=== PATIENT | female | born 1950 | race Caucasian/White ===

== ENCOUNTER → 2021-09-29 | Outpatient (CLI) | payer MEDICARE ==
[~2021-09-29] MED LIST: CALC-178 PO; CALC500T30 PO; CARV6.25 PO; CYCL10TA19 PO; DULO30CA2 PO; ERYT250T14 PO; HYDR-3135 PO; PRAV20TA2 PO; RIVA20TA2 PO; TRAM50TA PO
--- NOTE | 2021-09-29 10:37 | RAD ---
Exam Date: 09/29/2021 10:13 AM XR LUMBAR SPINE 2-3V Indication: Reason: LOW BACK PAIN / Spl. Instructions: / History: . FINDINGS/ IMPRESSION: There is mild retrolisthesis of L1 on L2, L3 on L4, and L4 on L5. The vertebral body heights are maintained without evidence of compression fracture. Mild to moderate disc space narrowing seen at multiple levels with small to moderate osteophytes and mild to moderate facet joint arthropathy. Degenerative changes are seen in the SI joints. Vascular calcifications a re noted. Electronically signed by: Julio Gaspar MD (09/29/2021 10:34 AM) [id number]
--- NOTE | 2021-09-29 11:01 | RAD ---
Exam Date: 09/29/2021 10:09 AM XR CERVICAL SPINE 2-3V Indication: Reason: CERVICAL RADCULOPATHY / Spl. Instructions: / History: . FINDINGS/ IMPRESSION: The cervical spine is visualized from C1 to T1 on the lateral view. There is greater anterolisthesis of C4 and C5 with focal kyphosis. The vertebral body heights are maintained without evidence of acu te fracture. Mild to moderate disc space narrowing seen at multilevels with small osteophytes, most prominent at C5-C6 and C6-C7. The atlantoaxial interval is within normal limits. The prevertebral so ft tissues are normal. Electronically signed by: Julio Gaspar MD (09/29/2021 10:58 AM) [id number]
--- NOTE | 2021-09-29 13:32 | PDOC1 ---
INITIAL PAIN CONSULT DATE OF SERVICE: DOS: DATE: 09/29/21 TIME: :22 CHIEF COMPLAINT: Chief Complaint: Neck and left upper extremity pain Low back and left lower extremity pain HISTORY OF PRESENT ILLNESS: 71-year-old female presents with history of pain base of neck and left upper e xtremity and shoulder as well as low back pain mid back pain and radiating pain to the lower extremities left greater than right as well. Patient reports has been going on for 20 years least is worse over the past year or so not the result of any one specific injury or accident that she is aware but getting worse with time and wear and tear. Patient reports pain the base the neck and left upper extremity is her main complaint with pain rating the posterior deltoid anterior deltoid lateral deltoid to the biceps and triceps as well as into the forearm and into the hand with some numbness and tingling in the fingers at times. Patient reports is worse with repetitive motions lifting weightbearing reaching overhead with her arms some pain on the right side as well but mostly on the left. Patient reports it can be constant sharp stabbing throbbing and shooting in the arms intermittent intensity but always present with change during the day with activity has a burning sensation in the mid back as well as the upper back and aching in the low back with some pain in the left lower extremity as well. Patient reports that the pain wakes her from sleep about once or twice a night does not affect her bowel bladder control does affect her ability to walk, especially with the pain in the low back and legs, patient reports that she has had physical therapy as recently as October of this past year for 8 weeks, also chiropractic treatment which is ongoing and exercise which is ongoing always help with the pain but none of them decreases significantly. Patient been taking [id number] Tylenol which helps but only by about 25%. Patient reports her disability rating 0-10 10 being the worst is a 7-8 on scale 10 with family home responsibilities 9 with recreation 8 with social activity occupation and sexual behavior 9 with life support activities and 7 with self-care activities. Patient has had no diagnostic studies at this point and has been diagnosed with fibromyalgia and peripheral neuropathy in the past by her report. Patient reports no loss of motor function but significant fatigability of the left upper extremity with repetitive motions and weightbearing, as well as the low back and legs with standing and walking. PAST MEDICAL HISTORY: PMH: Hypertension, arthritis, hyperlipidemia, atrial fibrillation, fibromyalgia, depression, stroke PREVIOUS SURGERIES: Past Surgical Hx: Tonsillectomy, tubal ligation, left total knee replacement, cardiac ablation CURRENT MEDICATIONS: Current Meds: Active Scripts Medications Dose Route/Sig Max Daily Dose Days Date Category Dose Instructions Calcium 1,000 + D3 Caplet (Calcium Carbonate/Vitamin D3) 1 Each Tablet 1 Tab PO DAILY 30 09/29/21 Reported Xarelto (Rivaroxaban) 20 Mg Tablet 1 Tab PO DAILY 30 09/29/21 Reported with food Tramadol Hcl 50 Mg Tablet 50 Mg PO PRN Q8HRS PRN 09/29/21 Reported Bowden 10-325 Tablet (Acetaminophen/Hydrocodone Bitart) 1 Each Tablet 1-2 Tab PO Q4-6HRS 08/13/14 Reported Cymbalta (Duloxetine Hcl) 30 Mg Capsule.dr 2 Cap PO DAILY 08/13/14 Reported ALLERGIES; Allergies: Coded Allergies: No Known Drug Allergies (Unverified , 08/13/14) FAMILY HISTORY: Family Hx: No major medical problems or conditions that she is aware of. SOCIAL HISTORY: Social Hx: Patient does not memo alcohol does not smoke not use any illegal illicit recreational drugs is lives with her spouse and lives locally in [facility] reports she is currently retired but stays very active. REVIEW OF SYSTEMS: ROS: Positive for those items mentioned in history of present illness, all systems are reviewed, otherwise negative ,and are complete full and well-documented on patient's chart. PHYSICAL EXAM: VS: Blood pressure 159/69 pulse 70 respirations 18 temperature is 98.0 F height 5 feet 5 inches weight is 202 pounds PE: PHYSICAL EXAMINATION: GENERAL: The patient is awake, alert, oriented, appropriate, very pleasant in demeanor HEENT: Shows normocephalic, atraumatic. Extraocular movements are intact and symmetrical. Oral cavity: Mucous membranes moist and pink. NECK: Shows anterior throat supple without palpable lymphadenopathy noted. Swallow reflex symmetrical. CHEST: Shows normal on inspection. Breath sounds are clear bilaterally, no rales rhonchi or wheezes auscultated. HEART: Shows S1, S2 clear. No murmurs auscultated. ABDOMEN: Soft, nontender, nondistended. No palpable organomegaly is noted. No rebound or guarding demonstrated. BACK: Shows spine grossly in the midline. Normal-appearing cervical lordotic curvature. Cervical paraspinous muscles show symmetrical inspection, on palpation some moderate tenderness diffusely in the middle and lower distribution the paraspinous muscles somewhat more on the left than the right into the superior medial trapezius but without specific trigger points without atrophy hypertrophy. Patient shows good rotation motion cervical spine with some tenderness with far left lateral rotation also with extension but not with forward flexion or right lateral rotation. There is slightly increased thoracic kyphosis, some flattening of the lumbar lordotic curvature. Lumbar paraspinous muscles show symmetrical on inspection, on palpation shows some moderate tenderness diffusely throughout the upper, middle and lower distribution of the paraspinous muscles bilaterally and also into the lower thoracic paraspinous musculature, firm and tender, but without specific trigger points, without radiation of pain. The patient has good rotational motion of the lumbar spine, both laterally as well as extension and flexion without significant difficulty. No tenderness over the spinous processes, sacrum or sacroiliac regions. EXTREMITIES: Lower extremities show deep tendon reflexes one in the patellar and tendo calcaneus tendons. Motor exam is 5 on a scale of 5 with right dorsiflexion, extension, quadriceps and hamstring flexion and 4/5 on the left. Peripheral pulses are 1+ posterior tibial. No peripheral edema is noted bilaterally. Lower extremities are warm and dry to touch, equal in color and appearance. Upper extremity show deep tendon reflexes 2+ in the bicep and tricep tendons, motor exam is 4 to scale 5 with left geological technician strength bicep and triceps and 5 out of 5 on the right. Peripheral pulses are 2+ radial. Shoulder shrug is strong and intact without loss strength on resistance as is abduction of the shoulder 90 degrees without loss of strength on resistance bilaterally. SKIN: Shows warm and dry, good turgor. No edema. No sores, rashes or bruising throughout. IMPRESSION: Impression: 71-year-old female with long history of pain base of neck and shoulders and radicular pain following a C6-7 dermatomal distribution in the left upper extremity Low back and left greater than right lower extremity pain Arthritis Hypertension Previous strokes Atrial fibrillation status post ablation Fibromyalgia Depression Plan: Options were discussed the patient occluding conservative managements physical therapies interventional techniques. Patient would like to pursue eventual techniques as she is currently doing physical therapies and chiropractic treatment. We discussed a cervical epidural steroid injection using description as well as anatomical models to describe the procedure. We will check with patient's can bander operator to obtain clearance to hold her Xarelto for 48 hours prior to interventional treatment. If deemed safe and appropriate will have patient return after holding the medication for 48 hours and plan on cervical epidural steroid injection, C6-7 translaminar approach, at that time. CECE CONNOLLY MD Sep 29, 2021 13:32
== END | disposition home or self-care (01) ==
LOC: PNCL 09:00
PROVIDERS: ATTEND Anesthesiology
DX: M54.50 Low back pain, unspecified (principal); M54.2 Cervicalgia; M25.78 Osteophyte, vertebrae; M79.602 Pain in left arm; M79.605 Pain in left leg; I10 Essential (primary) hypertension; M19.90 Unspecified osteoarthritis, unspecified site; I48.91 Unspecified atrial fibrillation; F32.9 Major depressive disorder, single episode, unspecified; Z98.51 Tubal ligation status; Z98.890 Other specified postprocedural states; Z86.73 Personal history of transient ischemic attack (TIA), and cerebral infarction without residual deficits; Z79.899 Other long term (current) drug therapy
CPT/HCPCS: 72040; 72100; 99205; G0463

== ENCOUNTER → 2021-10-14 | Outpatient (CLI) | payer MEDICARE ==
[~2021-10-14] MED LIST changes: +DEXAMETHASONE PRES.FREE 10 MG/ML VIAL. ONE; +IOHEXOL 180 MG/ML 10 ML VIAL. ONE
--- NOTE | 2021-10-14 12:09 | PDOC ---
Progress Note - Pain Clinic Date of Service: DOS: DATE: 10/14/21 TIME: 12:03 Diagnosis: Dx: Cervical radiculopathy with cervical degenerative disc disease Lumbar radiculopathy with lumbar degenerative disc disease Bilateral sacroiliitis History or Present Illness: HPI: 71-year-old female returns for follow-up status post evaluation and holding her Xarelto for 48 hours patient's been off of this now returns for complaints of pain the base the neck and shoulders more in the right upper extremity than the left and radiating the right arm and bicep into the hand as well in a radicular fashion patient reports is still very painful rates as a 9 on scale 10 is worse over the past week 8 on average 6 its least and is an 8 today pain scribes aching sharp dull shooting burning stabbing can be constant and severe with repetitive motions reaching overhead with the right arm as well as lifting and reaching forward and with driving the car with her right arm on the steering wheel is noticeably painful as well. Patient reports no loss of motor function but significant fatigability with the right upper extremity with repetitive activity. Patient reports no bowel or bladder incontinence also has secondary complaint of pain in the bilateral posterior hips with previous history of sacroiliitis we had discussed that with her on her last visit as well her neck and right upper extremity pain are more pressing and she would like to have the sacroiliitis addressed eventually. Patient reports no new deficits. Physical Exam: VS: Blood pressure is 163/72 pulse 91 respirations 18 temperature 97.1 F height is 5 foot 5 inches weight is 200 pounds. PE: PHYSICAL EXAMINATION: GENERAL: The patient is awake, alert, oriented, appropriate, very pleasant in demeanor. HEENT: Shows normocephalic, atraumatic. Extraocular movements are intact and symmetrical. NECK: Shows anterior throat supple without palpable lymphadenopathy noted. Swallow reflex symmetrical. CHEST: Shows normal on inspection. Breath sounds are clear bilaterally. HEART: Shows S1, S2 clear. No murmurs auscultated. ABDOMEN: Soft, nontender, nondistended. No palpable organomegaly is noted. No rebound or guarding demonstrated. BACK: Shows spine grossly in the midline. Normal-appearing cervical lordotic curvature. There is slightly increased thoracic kyphosis, some minor flattening of the lumbar lordotic curvature. Lumbar paraspinous muscles show symmetrical on inspection, on palpation shows some moderate tenderness diffusely throughout the upper, middle and lower distribution of the paraspinous muscles, but without specific trigger points, without radiation of pain. The patient has good rotational motion of the lumbar spine, both laterally as well as extension and flexion without significant difficulty. Patient significant tenderness over the bilateral sacroiliac joints and the posterior superior iliac spines with direct palpation as well as with positive compression test bilaterally with significant tenderness in the posterior aspect of the sacroiliac joint right and left essentially equal. EXTREMITIES: Upper extremities show deep tendon reflexes 2+ in the biceps and tricep tendons. Motor exam is 4 on a scale of 5 with right tour leader, biceps and triceps flexion and 5/5 on the left. Peripheral pulses are 2+ radial. No peripheral edema is noted bilaterally. Upper extremities are warm and dry to touch, equal in color and appearance. Lower extremities are nontender reflexes 1+ in patellar and tendo calcaneus tendons, motor exam is 4-5 on the left and 5/5 on the right dorsiflexion extension quadricep and hamstring flexion. Patient has positive Gaenslen's maneuver bilaterally with posterior displacement of the lower extremity and external pressure applied to the iliac, also positive Iraj's maneuver bilaterally with external rotation of the femur and posterior displacement. SKIN: Shows warm and dry, good turgor. No edema. No sores, rashes or bruising throughout. Procedure: Procedure: Options discussed with patient. Patient's old chart was viewed as her current medication regimen updated her review of systems updated today as well. We will proceed with a cervical epidural steroid injection today with fluoroscopic guidance. Risks were discussed including but not limited to: Bleeding, infection, possibility of epidural hematoma and subsequent neurological compromise, dural puncture, headaches, spinal cord and/or nerve damage, side effects of steroid medication, and poor results regarding pain control. Patient understands and wished to proceed. Patient will return to clinic in approximately 2 weeks for follow-up, was counseled as to return appointment, activity level, and side effect to be aware of. Medication Injected: Med Injected: Procedure cervical epidural steroid injection at the C6-7 level, using local anesthetic under sterile prep and drape using C-arm fluoroscopic guidance under local anesthesia medications injected ; 20 mg dexamethasone +5 mL normal saline and 2 mL contrast; condition at discharge is stable patient tolerated procedure well. and had no complications Condition at Discharge: Condition at Discharge: Condition at discharge stable, patient Zaheer the procedure well and had no complications. CECE CONNOLLY MD Oct 14, 2021 12:09
--- NOTE | 2021-10-14 12:09 | PDOC4 ---
Procedure Note: ICD 10 Code: ICD 10 Code: M54.12 M50.30 Procedure Note: Patient was consented for cervical epidural steroid injection with fluoroscopic guidance. Risks were discussed including but not limited to: Bleeding, infection, possibility of epidural hematoma and subsequent neurological compromise, dural puncture, headaches, spinal cord and/or nerve damage, side effects of steroid medication, and poor results regarding pain control. Patient understands and wished to proceed. Procedure cervical epidural steroid injection at the C6-7 level, using local anesthetic under sterile prep and drape using C-arm fluoroscopic guidance under local anesthesia medications injected ; 20 mg dexamethasone +5 mL normal saline and 2 mL contrast; condition at discharge is stable patient tolerated procedure well. and had no complications CECE CONNOLLY MD Oct 14, 2021 12:09
== END | disposition home or self-care (01) ==
LOC: PNCL 12:01
PROVIDERS: ATTEND Anesthesiology
DX: M50.10 Cervical disc disorder with radiculopathy, unspecified cervical region (principal); M51.16 Intervertebral disc disorders with radiculopathy, lumbar region; M54.12 Radiculopathy, cervical region; M46.1 Sacroiliitis, not elsewhere classified; Z79.899 Other long term (current) drug therapy
CPT/HCPCS: 62321; J1100; Q9965

== ENCOUNTER → 2021-11-04 | Outpatient (CLI) | payer MEDICARE ==
[~2021-11-04] MED LIST changes: -DEXAMETHASONE PRES.FREE 10 MG/ML VIAL. ONE; -IOHEXOL 180 MG/ML 10 ML VIAL. ONE
--- NOTE | 2021-11-04 12:14 | PDOC ---
Progress Note - Pain Clinic Date of Service: DOS: DATE: 11/04/21 TIME: 11:36 Diagnosis: Dx: Cervical radiculopathy with cervical degenerative disc disease Lumbar radiculopathy with lumbar degenerative disease Bilateral sacroiliitis History or Present Illness: HPI: 71-year-old female returns for follow-up status post cervical epidural steroid injection x1. Patient reports about 80% improvement for the first 3 weeks 7 pain returning in the base the neck and shoulders somewhat worse on the right shoulder and upper extremity but still better than it was patient reports some pain in the left wrist now which is new and she has a [id number] pain pa tch on the left medial wrist on the ulnar distribution patient reports the pain the base the neck and shoulders initially was doing much better she is increased distance walking doing household activities and travel with greater ease sleeping better at night now the pain is beginning to awaken her from sleep about once a night patient reports the pain is aching and sharp in the base the neck and shoulder radiating into the right upper extremity as well as some in the left posterior shoulder. Patient reports pain in the low back and the bilateral lower extremities as well but not nearly as significant as the neck and upper extremities patient reports aching sharp stabbing constant can be severe and unbearable in the shoulders and especially in the right upper extremity rated 8-9 over 10 is worse over the past week 8-9 on average and a 6 at its least is an 8 today. Patient reports no loss of motor function with significant fatigability with the upper extremities especially the right upper extremity. Patient reports she is still taking her Xarelto and took it as recently as yesterday. Physical Exam: VS: Blood pressure is 152/77 pulse 91 respirations 18 temperature is 98.2 F height is 5 feet 5 inches weight is 198 pounds. PE: PHYSICAL EXAMINATION: GENERAL: The patient is awake, alert, oriented, appropriate, very pleasant in demeanor HEENT: Shows normocephalic, atraumatic. Extraocular movements are intact and symmetrical. Oral cavity: Mucous membranes moist and pink. NECK: Shows anterior throat supple without palpable lymphadenopathy noted. Swallow reflex symmetrical. CHEST: Shows normal on inspection. Breath sounds are clear bilaterally, no rales rhonchi or wheezes auscultated. HEART: Shows S1, S2 clear. No murmurs auscultated. ABDOMEN: Soft, nontender, nondistended. No palpable organomegaly is noted. BACK: Shows spine grossly in the midline. Normal-appearing cervical lordotic curvature. There is mildly increased thoracic kyphosis, some moderate fl attening of the lumbar lordotic curvature. Lumbar paraspinous muscles show symmetrical on inspection, on palpation shows some moderate tenderness diffusely throughout the upper, middle and lower distribution of the paraspinous muscles without specific trigger points, without radiation of pain. The patient has good rotational motion of the lumbar spine, both laterally as well as extension and flexion without significant difficulty. EXTREMITIES: Lower extremities show deep tendon reflexes 1 in the patellar and tendo calcaneus tendons. Cervical paraspinous muscles show symmetrical inspection, on palpation some moderate tenderness diffusely bilaterally diffusely without significant radiation. Patient shows full rotation of motion cervical spine both laterally as well as extension flexion with some moderate pain only with far right lateral rotation past 45 degrees. Motor exam is 5 on a scale of 5 with right dorsiflexion, extension, quadriceps and hamstring flexion and 4/5 on the left. Peripheral pulses are 1+ posterior tibial. No peripheral edema is noted bilaterally. Lower extremities are warm and dry to touch, equal in color and appearance. Upper extremity show deep tendon reflexes 2+ in the bicep triceps tendons, motor exam is 4 to scale 5 on the right surveillance camera technician strength bicep tricep flexion 5 out of 5 on the left. Peripheral pulses are 2+ radial. Patient's left wrist show some significant tenderness with palpation over the distal radius and carpal joint but without restriction in range of motion. SKIN: Shows warm and dry, good turgor. No edema. No sores, rashes or bruising throughout. Procedure: Procedure: Options discussed with patient. Patient chart was reviewed as her current medication regimen updated her review of systems updated as well. We will hold further injections at this time as patient has a very high co-pay with her insurance provider. Patient will continue with Xarelto and if the pain returns to his previous level she will consider additional injection at that time. In the meantime, patient will continue with stretching strength and exercise as well as oral analgesics as currently. We discussed other pharmaceutical treatments and will call in Medrol Dosepak patient was given instructions as well as side effects beware with the medication. Medication Injected: Med Injected: None Condition at Discharge: Condition at Discharge: Condition at discharge is stable. CECE CONNOLLY MD Nov 04, 2021 12:13
== END | disposition home or self-care (01) ==
LOC: PNCL 10:41
PROVIDERS: ATTEND Anesthesiology
DX: M50.10 Cervical disc disorder with radiculopathy, unspecified cervical region (principal); M51.16 Intervertebral disc disorders with radiculopathy, lumbar region; M46.1 Sacroiliitis, not elsewhere classified; Z79.899 Other long term (current) drug therapy
CPT/HCPCS: 99212; G0463